=== PATIENT | female | born 1935 | race Caucasian/White ===

== ENCOUNTER → 2016-11-07 | Outpatient (CLI) | payer OTHER ==
[~2016-11-07] VITALS: Ht 154.9 cm; Wt 64.0 kg
[~2016-11-07] MED LIST: ASPIRIN EC81 M1 PO; CARVEDILOL12.5 MG PO; COLACE100 MG PO; COREG PO; COREG6.25 MG PO; ENOXAPARIN30 MG/0.1 SQ; FUROSEMIDE 40 M40 M1 PO; IRON-150 TABLE1 EACH PO; K-DUR10 ME1 PO; LASIX 20 MG TAB20 MG PO; LASIX 40 MG TAB40 M2 PO; MAGOX 400400 MG PO; METOLAZONE 5 MG5 MG PO; MYFORTIC PO; NEXIUM PO; NEXIUM40 MG PO; NORCO 5-325 TA1 EACH PO; POTASSIUM20; PROBIOTIC1 EAC2 PO; PROGRAF0.5 MG PO; PROGRAF1 MG PO; TRAMADOL 50 MG50 MG PO; ULTRAM 50MG TAB50 MG PO; VITAMIN D2000 UNIT PO; VITAMIN D35000 UNI1 PO; VOLTAREN GEL 1100 G2 TOP; ZAROXOLYN 2.5M2.5 M1 PO; ZESTRIL2.5 MG PO; ZOCOR40 MG PO; ZOFRAN8 MG PO
--- NOTE | ~2016-11-07 | HPC ---
[facility] [address] [address] PAIN MANAGEMENT CONSULTATION Name: IBAN GUARDADO Room #: REG EDINSONCharlie Mendez#: [id number] Admission: 11/07/16 Attend Phys: Demetrio Gautam DO Discharge: Date of : 34 Report #: [id number] THIS REPORT FOR: //name// CC: Colin Gautam The patient is an 81-year-old female, last seen in the pain clinic back in June. She was given an epidural injection in 05/2015 with excellent improvement of radicular pain. She had SI joint injection at last visit with improvement of low back pain. He returns to pain clinic today noting pain has recurred in a more radicular fashion. She notes pain is present low back radiating to the right buttock and leg. She had broken her leg in July (left leg). This was treated conservatively with a cast. She was in rehabilitation hospital for several weeks. With gait changes, had increase in radicular pain, low back, right leg. PHYSICAL EXAMINATION: Shows an 81-year-old female, BMI is 26.7 kilograms per meter squared. Subjective pain score is 7/10. Vital signs stable as noted in the EMR. Rises from chair using armrest, modestly antalgic gait, positive straight leg raise on the right with slight decrease right hip flexion strength. DIAGNOSTIC STUDIES: Moderately dated and include MRI from 2012, a lumbar spine noting multilevel degenerative disc changes, grade 1 anterolisthesis at L5-S1 with right-sided L5-S1 neural foraminal narrowing. ASSESSMENT: Symptomatic lumbar radiculopathy secondary to spinal stenosis, component of SI joint dysfunction and chronic pain syndrome. RECOMMENDATION: I had discussion with the patient today, we elected to move forward with lumbar epidural injection under fluoroscopy. Again, the SI joint injection at last visit afforded good and ongoing relief. She requires no medication at present. PROCEDURE: Lumbar epidural injection under fluoroscopy. PROCEDURE NOTE: After both written and informed consent to include risk of spinal cord damage, increased pain, weakness and dural puncture, the patient was taken to the fluoroscopy suite, placed in the prone position. After sterile prep and drape, a skin wheal with lidocaine was raised. A 22-gauge epidural Tuohy needle was inserted in the midline at L4-L5 with good loss to resistance. Negative aspiration for cerebrospinal fluid or blood was noted. Then 1 mL of Omnipaque under biplanar fluoroscopy showed good spread within the epidural space. This was followed with 80 mg of triamcinolone plus 1 mL of 1.5% preservative-free Xylocaine, 0.5 mL Xylocaine was then injected to flush the [address] [address] PAIN MANAGEMENT CONSULTATION Name: DEBBYQIANA Room #: REG GRIS Mendez#: [id number] Admission: 11/07/16 Attend Phys: Demetrio Gautam DO Discharge: Date of : 34 Report #: [id number] needle; it was removed. The patient was monitored for an appropriate period of time and discharged in good and stable condition. <ELECTRONICALLY SIGNED> By: Demetrio Gautam DO 11/11/16 0917 1617 [id number] Demetrio Gautam DO /nt
[2016-11-07 13:04] VITALS: BP 127/85
== END | disposition home or self-care (01) ==
LOC: PAIN 07:20
DX: M48.06 Spinal stenosis, lumbar region (principal); G89.4 Chronic pain syndrome; M53.3 Sacrococcygeal disorders, not elsewhere classified

== ENCOUNTER → 2016-11-08 | Outpatient (CLI) | payer OTHER ==
--- NOTE | ~2016-11-08 | 2DMMODE ---
[facility] [place] [address] 2 D/M-MODE ECHOCARDIOGRAM Name: IBAN GUARDADO Room #: REG CL [facility]#: [id number] Admission: 11/08/16 Attend Phys: Colin Waldrop MD Discharge: Date of : 34 Date of Service: 11/08/16 1226 Report #: [id number] THIS REPORT FOR: //name// Transthoracic Echocardiography Ordering physician: Colin Waldrop Referring physician: Jose M Patton John L. [employer]ine Plant Operator: SALOME Joy Indications/History: Edema, HTN, HLP. BP: 128 / HR: 62bpm Height: 61in Weight: 139.7lb 60 Study data: M-mode, complete 2D, complete spectral Doppler, and color Doppler. Location: Echo laboratory. Routine. Image quality was good. 2D measurements Normal Normal LVID ED 46.7mm 36-57 IVS ED 8.1mm 6-11 LVID ES 30.5mm 23-40 LVPW ED 9.3mm 6-11 LA volume 44ml/m2 16-28 AoRoot diam 32.3mm 21-37 index ED LVOT diameter 18-23 Findings: Left ventricle: The cavity size was normal. Wall thickness was normal. Systolic function was normal. The estimated ejection fraction was in the range of 55% to 60%. Wall motion was normal. Right ventricle: The cavity size was at the upper limits of normal. Systolic function was normal. Right atrium: The atrium was mildly dilated. Left atrium: The atrium was moderately dilated. Volume index: 44ml/m2 (S). Aortic valve: Trileaflet; mildly calcified leaflets. Doppler: There was no stenosis. No regurgitation. Peak velocity: 118.4cm/s (S). [facility] [address] [place] [address] 2 D/M-MODE ECHOCARDIOGRAM Name: IBAN GUARDADO Room #: REG CL Vanessa#: [id number] Admission: 11/08/16 Attend Phys: Colin Waldrop MD Discharge: Date of : 34 Date of Service: 11/08/16 1226 Report #: [id number] Mitral valve: Mildly thickened leaflets . Doppler: There was no evidence for stenosis. Mild regurgitation. Peak E-wave velocity: 57.8cm/s. Peak A-wave velocity: 50.3cm/s. Tricuspid valve: Structurally normal valve. Doppler: There was no evidence for stenosis. Mild regurgitation. Regurgitant peak velocity: 315.3cm/s. Peak RV-RA gradient: 40mm Hg (S). Pulmonic valve: Structurally normal valve. Doppler: There was no evidence for stenosis. No regurgitation. Pericardium: There was no pericardial effusion. Aorta: Aortic root: The aortic root was normal in size. Pulmonary artery: Systolic pressure was estimated to be 45mm Hg. Systemic veins: Inferior vena cava: The vessel was normal in size; the respirophasic diameter changes were in the normal range (= 50%). Conclusions 1. Left ventricle: The cavity size was normal. Wall thickness was normal. Systolic function was normal. The estimated ejection fraction was in the range of 55% to 60%. 2. Right atrium: The atrium was mildly dilated. 3. Left atrium: The atrium was moderately dilated. 4. Aortic valve: Trileaflet; mildly calcified leaflets. There was no stenosis. 5. Mitral valve: Mildly thickened leaflets . Mild regurgitation. 6. Tricuspid valve: Mild regurgitation. 7. Pericardium, extracardiac: There was no pericardial effusion. <ELECTRONICALLY SIGNED> By: Thuan Reeves MD 11/08/16 1528 1226 1528 Thuan Reeves MD /pool
== END ==
LOC: CV 12:05
DX: I10 Essential (primary) hypertension (principal); I50.9 Heart failure, unspecified; E78.5 Hyperlipidemia, unspecified; I34.0 Nonrheumatic mitral (valve) insufficiency; I07.1 Rheumatic tricuspid insufficiency; R60.9 Edema, unspecified

== ENCOUNTER → 2017-02-03 | Outpatient (CLI) | payer OTHER ==
[~2017-02-03] VITALS: Ht 154.9 cm; Wt 61.2 kg
--- NOTE | ~2017-02-03 | HPC ---
[facility] [place] [place] [address] PAIN MANAGEMENT CONSULTATION Name: IBAN GUARDADO Room #: REG [facility] Nuria.#: [id number] Admission: 02/03/17 Attend Phys: Demetrio Gautam DO Discharge: Date of : 34 Report #: [id number] THIS REPORT FOR: //name// CC: Colin Gautam The patient is an 82-year-old female well known to the pain clinic, last seen back in October, given epidural injection at that time. Prior injections had been back in 2014. She had broken her leg (left side) in July and was in rehab for good period of time with gait changes, had exacerbation of lumbar radicular pain. Following the injection at last visit, the patient notes that the radicular pain significantly improved. She still, however, has pain in the right low back, exacerbated with standing, walking and bending. Rates her pain a 7/10. Physical exam shows 82-year-old female, BMI is 25.5 kilograms per meter squared. Vital signs stable as noted in the EMR. Rises from chair using armrest, moderately antalgic gait favoring right low back. Positive straight leg raise is fairly equivocal on the right, but grossly positive Alfred test on the right. Please note MRI from 01/01/2017, lumbar spine was reviewed noting multilevel degenerative changes, chronic compression fractures T12-L1, lumbar scoliosis, grade 1 anterolisthesis at L5-S1, minimal anterolisthesis at L4-L5. Prior transplant kidney noted. ASSESSMENT: Symptomatic lumbar radiculopathy secondary to spinal stenosis by history, acute right sacroiliac joint dysfunction by clinical exam. RECOMMENDATIONS: 1. Physical therapy for water aerobics and PT. Prescription written for same. 2. No medication changes today. Continue Voltaren gel topically. 3. Right SI joint injection under fluoroscopy. 4. Follow up as needed. PROCEDURE NOTE: Right SI joint injection under fluoroscopy. DESCRIPTION OF PROCEDURE: After written informed consent was obtained, the patient was taken to the fluoroscopy suite and placed in prone position. After sterile prep and drape, skin was raised. A 22-gauge spinal needle was inserted into the inferior aspect of the right SI joint. Negative aspiration was accomplished, 40 mg triamcinolone plus 2 mL of 0.5% preservative-free bupivacaine was injected into and around the joint. Needle was removed. The [address] [address] PAIN MANAGEMENT CONSULTATION Name: IBAN GUARDADO Room #: REG [facility] [id number] Admission: 02/03/17 Attend Phys: Demetrio Gautam DO Discharge: Date of : 34 Report #: [id number] area was cleansed, Band-Aids applied. The patient monitored for an appropriate period of time, discharged in good and stable condition. <ELECTRONICALLY SIGNED> By: Demetrio Gautam DO 02/06/17 1240 1433 0434 Demetrio Gautam DO /maria d
[2017-02-03 15:15] VITALS: BP 111/65
== END ==
LOC: PAIN 06:55
DX: M53.3 Sacrococcygeal disorders, not elsewhere classified (principal); M54.16 Radiculopathy, lumbar region; M48.06 Spinal stenosis, lumbar region; I10 Essential (primary) hypertension

== ENCOUNTER → 2017-07-03 | Outpatient (CLI) | payer OTHER ==
[~2017-07-03] VITALS: Ht 154.9 cm; Wt 61.2 kg
--- NOTE | ~2017-07-03 | HPC ---
[facility] [address] [place] [address] PAIN MANAGEMENT CONSULTATION Name: IBAN GUARDADO Room #: REG [facility] Nuria.#: [id number] Admission: 07/03/17 Attend Phys: Demetrio Gautam DO Discharge: Date of : 34 Report #: [id number] THIS REPORT FOR: //name// CC: Colin Gautam HISTORY OF PRESENT ILLNESS: The patient is a very pleasant 82-year-old female, long treated for symptomatic lumbar radiculopathy and in last visit, given a right SI joint injection. He returns to pain clinic today noting that the SI joint injection actually afforded tremendous relief, per the patient. She had 90% relief for 2 months. Took up to a week for the steroid to have its effect. Returns to pain clinic today noting pain has begun to recur, right greater than left low back and buttock, rates it at 4/10. It does not radiate much below about mid thigh. Pain exacerbated with standing, walking and bending. She gets some relief when she sits down or lies down. PHYSICAL EXAMINATION: GENERAL: Shows pleasant 82-year-old female. VITAL SIGNS: BMI is 25.5 kilograms per meter squared. Vital signs are stable as noted in the EMR. MUSCULOSKELETAL: Rises from chair using armrest, modestly antalgic and somewhat ataxic gait, a little bit of forward posture and slight thoracic kyphosis. Exquisitely tender over the right SI joint. Lower extremity strength is symmetric. Straight leg raise is negative. REVIEW OF THE DIAGNOSTIC STUDIES: Including MRI of the lumbar spine from 01/01/2017, MRI was subsequent to a fall. Impression was multilevel degenerative changes within the thoracic and lumbar spine with some stenosis noted, L2-L3 noted a slight superior and inferior extrusion of the disk, left greater than right. Again, at this point, that does not correlate with significant radicular symptoms. Mild pars defect at L5-S1 was noted. ASSESSMENT: 1. Symptomatic lumbar radiculopathy by clinical exam and history, symptoms are relatively quiescent at present. 2. Right sacroiliac joint pain today with excellent relief following prior injection in January. RECOMMENDATIONS: 1. Right SI joint injection under fluoroscopy. 2. Referral to physical therapy for home exercise regimen for core stabilization. 3. Continue current medications including Voltaren gel topically and tramadol for pain. [address] [address] PAIN MANAGEMENT CONSULTATION Name: IBAN GUARDADO Room #: REG GRIS Mendez#: [id number] Admission: 07/03/17 Attend Phys: Demetrio Gautam DO Discharge: Date of : 34 Report #: [id number] PROCEDURE NOTE: Right SI joint injection under fluoroscopy. PROCEDURE: After written informed consent was obtained, the patient taken to the fluoroscopy suite, placed in prone position. After sterile prep and drape, skin wheal was raised. A 22-gauge stylet needle was placed to contact the inferior aspect of the right SI joint. Negative aspiration was accomplished, 40 mg triamcinolone plus 2 mL of 0.5% preservative-free bupivacaine was injected into and around the joint. Needle was removed. The area was cleansed, Band-Aids applied. The patient monitored for an appropriate period of time, discharged in good and stable condition. <ELECTRONICALLY SIGNED> By: Demetrio Gautam DO 07/04/17 0705 1513 0213 Demetrio Gautam DO /nt
[2017-07-03 13:56] VITALS: BP 118/72
== END | disposition home or self-care (01) ==
LOC: PAIN 07:10
DX: M53.3 Sacrococcygeal disorders, not elsewhere classified (principal); M54.16 Radiculopathy, lumbar region

== ENCOUNTER → 2017-10-16 | Outpatient (CLI) | payer OTHER ==
[~2017-10-16] VITALS: Ht 154.9 cm; Wt 62.1 kg
--- NOTE | ~2017-10-16 | HPC ---
[facility] [address] [address] [address] PAIN MANAGEMENT CONSULTATION Name: IBAN GUARDADO Room #: REG GRIS Mendez#: [id number] Admission: 10/16/17 Attend Phys: Demetrio Gautam DO Discharge: Date of : 34 Report #: [id number] THIS REPORT FOR: //name// CC: Colin Gautam The patient is a pleasant 82-year-old female, typically treated for lumbar radiculopathy and SI mediated pain. She was last seen in the pain clinic in June, given a right SI joint injection and referred to physical therapy. She returns to pain clinic today noting that SI mediated pain is actually is fairly nominal at this time. She is doing well from that standpoint, though she developed some pain primarily in the neck, left shoulder and into the posterior occiput. Notes pain has been present for about 6 weeks. Denies antecedent trauma and overuse. She notes she was hospitalized at [facility] early August for flu-like symptoms, she was "sick" all of August. She started sleeping with 3 pillows to keep her head up somewhat. This may be related to the development of the left neck pain. She denies specific myelopathic or radicular symptoms. The patient has tried current analgesics she has used for her axial back pain including topical Voltaren gel and tramadol with nominal efficacy. She does rate her SI mediated pain 65% improved following the SI joint injection in June. PHYSICAL EXAMINATION: Shows a pleasant 82-year-old female, BMI is 25.9 kg/m2. Blood pressure 134/60, pulse 62, and respirations are 20. Cervical range of motion is limited. Significant tenderness over the left superior cervical facet, pain radiating into the posterior occiput. Upper extremity strength is symmetric. Deep tendon reflexes are preserved for the biceps, triceps, and brachioradialis. There is some tenderness in the splenius capitis, trapezius muscles, though no discrete trigger points are noted. ASSESSMENT: Symptomatic cervical spondylosis by clinical exam and history. Pain is exacerbated with cervical rotation and flexion. No radicular symptoms. No reproducible trigger points in the overlying muscles. RECOMMENDATIONS: 1. Left C2-C3 cervical facet joint injection under fluoroscopy. 2. Physical therapy for range of motion. 3. Continue Voltaren gel topically. PROCEDURE NOTE: Left facet joint injection under fluoroscopy. PROCEDURE: After written informed consent was obtained, the patient was taken to the fluoroscopy suite and placed in prone position. After sterile prep and drape, skin wheal was raised. A 22-gauge stylet needle was placed to contact [address] [address] PAIN MANAGEMENT CONSULTATION Name: IBAN GUARDADO Room #: REG GRIS Mendez#: [id number] Admission: 10/16/17 Attend Phys: Demetrio Gautam DO Discharge: Date of : 34 Report #: [id number] the posterior aspect of the left C2-C3 cervical facets on AP projection in the middle of the lateral mass on lateral projection approaching posterior aspect of the joint. Negative aspiration was accomplished. 40 mg of Decadron plus 1 mL of 0.5% preservative-free bupivacaine was injected into and around the joint. Needle was removed, the area was cleansed, and Band-Aids applied. Fluoroscopy time was under 15 seconds. The patient was monitored for an appropriate period of time, discharged in good and stable condition. Follow up is p.r.n. By: 0612 0916 Demetrio Gautam DO /maria d
[2017-10-16 13:18] VITALS: BP 134/60
== END | disposition home or self-care (01) ==
LOC: PAIN 07:15
DX: M47.812 Spondylosis without myelopathy or radiculopathy, cervical region (principal); M53.3 Sacrococcygeal disorders, not elsewhere classified; M54.16 Radiculopathy, lumbar region; Z88.8 Allergy status to other drugs, medicaments and biological substances; Z79.82 Long term (current) use of aspirin; Z79.899 Other long term (current) drug therapy; Z98.890 Other specified postprocedural states